=== PATIENT | female | born 1980 | race American Indian/Alaskan Native ===

== ENCOUNTER 2018-02-06 10:57 | Day surgery (SDC) | payer OTHER ==
[2018-02-06] MEDS: NACL 0.9% 1000 ML 1,000 ML IV SCH ×2 (14:00→14:47)
[2018-02-06] MEDS ORDERED: WATER FOR IRRIG STERILE IR ONE (16:39)
[2018-02-06] MEDS ORDERED: DIPRIVAN 10 MG/ML IV ONE ×2 (17:31)
--- NOTE | 2018-02-06 17:44 | Anesthesia Day of Surgery ---
Anesthesia Day of Surgery - Day of Surgery Patient Examined: Yes Patient H&P Reviewed: Yes Patient is NPO: Yes Beta Blockers: No Cardiac Clearance: No Pulmonary Clearance: No
[2018-02-06] MEDS ORDERED: VERSED ONE (17:45)
--- NOTE | 2018-02-06 17:45 | Anesthesia Consultation ---
Anesthesia Consult and Med Hx - Airway Anesthetic Teeth Evaluation: Good Mental/Hyoid Distance: Adequate Mallampati Class: Class II Intubation Access Assessment: Probably Good - Pulmonary Exam CTA: Yes - Cardiac Exam Cardiac Exam: No Murmur - Pre-Operative Health Status ASA Pre-Surgery Classification: ASA2 Proposed Anesthetic Plan: MAC - Pulmonary Hx Smoking: No Hx Asthma: No Hx Respiratory Symptoms: No SOB: No COPD: No Home Oxygen Therapy: No Hx Pneumonia: No Hx Sleep Apnea: No - Cardiovascular System Hx Hypertension: No Hx Coronary Artery Disease: No Hx Heart Attack/AMI: No Hx Angina: No Hx Percutaneous Transluminal Coronary Angioplasty (PTCA): No Hx Cardia Arrhythmia: No Hx Pacemaker: No Hx Internal Defibrillator: No Hx Valvular Heart Disease: No Hx Heart Murmur: No Hx Peripheral Vascular Disease: No - Central Nervous System Hx Neuromuscular Disorder: No Hx Seizures: No CVA: No Hx Back Pain: No Hx Psychiatric Problems: No - Gastrointestinal Hx Ulcer: No Hx Gastroesophageal Reflux Disease: Yes - Endocrine Hx End Stage Renal Disease: No Hx Cirrhosis: No Hx Liver Disease: No Hx Insulin Dependent Diabetes: No Hx Non-Insulin Dependent Diabetes: No Hx Thyroid Disease: No Hx Hypothyroidism: No Hx Hyperthyroidism: No - Hematic Hx Anemia: No Hx Sickle Cell Disease: No - Other Systems Hx Alcohol Use: No Hx Substance Use: No Hx Cancer: No
--- NOTE | 2018-02-06 18:10 | Operative Report ---
Operative Report Operative Report: Date: 02/06/2018 Operative Report: Date of procedure: 02/06/2018 Procedure: Esophagogastroduodenoscopy with multiple mucosal biopsies. Attending physician: Rashel Freeman MD Certification And Selection Specialist: Rashel Freeman MD Indication: Patient is a 37 -year-old female who presented with a history of recurrent epigastric pain, heartburn and indigestion. An upper endoscopy is done to assess patient, so that treatment may be directed based on the findings. Consent: Informed consent was obtained after advising the patient and family regarding nature of this procedure, its indications, potential benefits as well as possible complications including but not limited to bleeding perforation and adverse reaction to medication, infection as well as other cardiopulmonary complications. An informed written and verbal consent was then obtained after due opportunity was provided for questions and answers. Monitoring: Patient was monitored continuously with pulse oximetry and electrocardiographic recordings as well as blood pressure recordings. Vital signs remained stable throughout this procedure with no untoward events. Preoperative assessment: Patient was assessed immediately prior to this procedure for capacity to tolerate monitored anesthesia care and moderate sedation as well as general anesthesia. Patient's ASA classification is 2, Mallampati class is 2, Hyomental distance is 3. Instrument: Exaptiven video endoscope Medications: Propofol given intravenously in divided doses. For details please refer to anesthesia records. Description of procedure: Patient was placed in the left lateral decubitus position after achieving sedation, the endoscope was introduced into the esophagus under direct vision. It was then advanced beyond the esophagus into the stomach and then beyond the stomach into the duodenum and to the second portion of the duodenum. It was subsequently withdrawn with careful inspection of all mucosal surfaces with the following findings. Findings: Patient has an irregular Z line at 38 cm. There was mild erythema in the gastric antrum. The gastric mucosa pattern appeared violaceous and reticulated. The endoscopic appearance suggests underlying gastropathy. Biopsies of the antrum were obtained for histopathology. The duodenum was normal to second portion. Impression:.Irregular Z line. Gastric antral erythema Violaceous reticulated appearing gastric mucosa Plan: Continue treatment with proton pump inhibitors. Follow pathology report. Direct additional treatment based on the pathology report. Patient will be observed clinically. Additional recommendations will be made follow-up.
--- NOTE | 2018-02-06 18:11 | Discharge Summary ---
Short Stay Discharge Plan Activity: advance as tolerated Weight Bearing Status: Weight Bear as Tolerated Diet: regular Follow up with: DAYNE LOVETT MD [Primary Care Provider] - 7 Days
[2018-02-06 18:58] VITALS: BP 108/75
== END 2018-02-06 10:58 | disposition home or self-care (01) ==
LOC: GIO 10:57 → EDSEX 10:57 → GIO 10:58
PROVIDERS: ATTEND Internal Medicine Gastroenterology
DX: K29.50 Unspecified chronic gastritis without bleeding (principal); B96.81 Helicobacter pylori [H. pylori] as the cause of diseases classified elsewhere; K21.9 Gastro-esophageal reflux disease without esophagitis; K31.89 Other diseases of stomach and duodenum; Z79.899 Other long term (current) drug therapy
CPT/HCPCS: 43239; 81025; 88305; 88342; J2250; J2704; J7030

== ENCOUNTER 2022-03-15 18:28 | Emergency (ER) | payer SELFPAY ==
[2022-03-16] MEDS ORDERED: METOCLOPRAMIDE 10 MG/2 ML INJ IV ONE (02:09)
[2022-03-16] MEDS ORDERED: KETOROLAC 30 MG/1 ML INJ IV ONE (02:09)
[2022-03-16] MEDS ORDERED: FAMOTIDINE 20 MG/2 ML INJ IV ONE (02:09)
[2022-03-16] MEDS ORDERED: SODIUM CHLORIDE 0.9% 1000 ML 1,000 ML IV ONE (02:09)
[2022-03-16] MEDS ORDERED: diphenhydrAMINE 50 MG/ML VIAL IV ONE (02:09)
--- NOTE | 2022-03-16 02:58 | XRay Report ---
XR chest 1V ap INDICATION / CLINICAL INFORMATION: Cough. COMPARISON: None available. FINDINGS: SUPPORT DEVICES: None. HEART /PULMONARY VASCULATURE: No significant abnormality. LUNGS / PLEURA: No focal airspace consolidation. Calcified granuloma in the left lung base. No pleura l effusion. No pneumothorax. ADDITIONAL FINDINGS: No significant additional findings. IMPRESSION: 1. No acute findings. Signer Name: Baljinder Verma MD Signed: 03/16/2022 2:54 AM Workstation Name: [id number]
[2022-03-16 03:13] LABS: Hematocrit 28.6 % (30.3-42.9); Mean Corpuscular HGB Conc 31 % (30-34); Mean Corpuscular Volume 72 fl (79-97); Platelet Count 316 K/mm3 (140-440); Red Blood Count 3.99 M/mm3 (3.65-5.03); Red Cell Distribution Width 18.4 % (13.2-15.2)
[2022-03-16 03:26] LABS: Alanine Aminotransferase 21 units/L (7-56); Albumin 4.1 g/dL (3.9-5); Blood Urea Nitrogen 8 mg/dL (7-17); Calcium 8.4 mg/dL (8.4-10.2); Hemolysis Index 3
[2022-03-16 03:28] LABS: BUN/Creatinine Ratio 13
[2022-03-16 03:42] LABS: Anisocytosis 1+; Basophils % (Manual) 0 % (0.0-1.8); Ovalocytes Few; Poikilocytosis 1+; Tear Drop Cells Few; Total Cells Counted 100
[2022-03-16 03:43] LABS: Platelet Estimate Consistent w Auto
[2022-03-16 03:55] LABS: Mucus,Urine FEW /HPF
[2022-03-16 04:01] LABS: Bilirubin,Urine Negative (Negative); Blood,Urine Negative (Negative); Color,Urine Straw (Yellow); PH,Urine 6.5 (5.0-7.0); Urobilinogen,Urine < 2.0 mg/dL (<2.0)
--- NOTE | 2022-03-16 05:42 | Emergency Department Report ---
ED General Adult HPI - General Chief complaint: Headache Stated complaint: HEAD AND BODY PAIN Source: patient Mode of arrival: Ambulatory Limitations: No Limitations - History of Present Illness Initial comments: Patient is a 41-year-old -[place] female with a history of GERD and anxiety presents to the ED with complaint of acute onset persistent epigastric pain, nausea, persistent dry cough and shortness of breath, headache, generalized weakness, subjective fever and chills for the last 5 days, worse in the last 2 days. Patient states that in the last 12 hours she has not been able to sleep because of worsening headache, epigastric pain and shortness of breath. Patient denies dizziness, syncope, chest pain, vomiting, diarrhea, dysuria, urinary frequency and urgency, sore throat, neck pain, change in vision, lightheadedness, vaginal bleeding or vaginal discharge. MD Complaint: headache, epigastric pain, dry cough, dyspnea; body aches and pain, nausea -: Sudden, days(s) (5) Location: head, chest Radiation: non-radiation Severity scale (0 -10): 10 Quality: aching, sharp Consistency: constant Improves with: none Worsens with: none Associated Symptoms: denies other symptoms, cough, fever/chills, headaches, loss of appetite, malaise, shortness of breath, weakness. denies: confusion, chest pain, diaphoresis, nausea/vomiting, rash, seizure, syncope Treatments Prior to Arrival: none - Related Data Previous Rx's Medication Instructions Recorded Last Taken Type Ascorbic Acid [Vitamin C] 1,000 mg PO BID #40 tab 03/16/22 Unknown Rx Azithromycin [Zithromax Z-YVES] 250 mg PO DAILY #6 tab 03/16/22 Unknown Rx Benzonatate [Tessalon Perles] 100 mg PO Q8HR #30 cap 03/16/22 Unknown Rx Butalb/Acetamin/Caff 50-325-40 1 - 2 tab PO Q6HR PRN #15 tab 03/16/22 Unknown Rx [Fioricet 50-325-40] Cetirizine HCl [Zyrtec 10mg tab] 10 mg PO DAILY #30 tab 03/16/22 Unknown Rx Famotidine [Pepcid] 20 mg PO BID #60 tablet 03/16/22 Unknown Rx Ibuprofen [Motrin] 800 mg PO Q8HR PRN #30 tablet 03/16/22 Unknown Rx Omeprazole 40 mg PO DAILY #60 cap 03/16/22 Unknown Rx Ondansetron [Zofran Odt] 4 mg PO Q8HR PRN #20 tab.rapdis 03/16/22 Unknown Rx Allergies Allergy/AdvReac Type Severity Reaction Status Date / Time No Known Allergies Allergy Verified 03/15/22 18:53 ED Review of Systems ROS: Stated complaint: HEAD AND BODY PAIN Other details as noted in HPI Constitutional: chills, malaise, weakness. denies: fever Eyes: denies: eye pain, eye discharge, vision change ENT: congestion. denies: ear pain, throat pain Respiratory: cough, shortness of breath. denies: wheezing Cardiovascular: denies: chest pain, palpitations Endocrine: no symptoms reported Gastrointestinal: abdominal pain (epigastric), nausea. denies: vomiting, diarrhea Genitourinary: denies: urgency, dysuria, discharge, abnormal menses, dyspareunia Musculoskeletal: arthralgia, myalgia. denies: back pain, joint swelling Skin: denies: rash, lesions Neurological: headache. denies: weakness, paresthesias Psychiatric: anxiety. denies: depression Hematological/Lymphatic: denies: easy bleeding, easy bruising ED Past Medical Hx - Past Medical History Hx Hypertension: No Hx Heart Attack/AMI: No Hx GERD: Yes Hx Liver Disease: No Hx Sickle Cell Disease: No Hx Seizures: No Hx Asthma: No Hx COPD: No - Surgical History Hx Pacemaker: No Hx Internal Defibrillator: No - Medications Home Medications: Home Medications Medication Instructions Recorded Confirmed Last Taken Type Ascorbic Acid [Vitamin C] 1,000 mg PO BID #40 tab 03/16/22 Unknown Rx Azithromycin [Zithromax Z-YVES] 250 mg PO DAILY #6 tab 03/16/22 Unknown Rx Benzonatate [Tessalon Perles] 100 mg PO Q8HR #30 cap 03/16/22 Unknown Rx Butalb/Acetamin/Caff 50-325-40 1 - 2 tab PO Q6HR PRN #15 tab 03/16/22 Unknown Rx [Fioricet 50-325-40] Cetirizine HCl [Zyrtec 10mg tab] 10 mg PO DAILY #30 tab 03/16/22 Unknown Rx Famotidine [Pepcid] 20 mg PO BID #60 tablet 03/16/22 Unknown Rx Ibuprofen [Motrin] 800 mg PO Q8HR PRN #30 tablet 03/16/22 Unknown Rx Omeprazole 40 mg PO DAILY #60 cap 03/16/22 Unknown Rx Ondansetron [Zofran Odt] 4 mg PO Q8HR PRN #20 tab.rapdis 03/16/22 Unknown Rx ED Physical Exam - General Limitations: No Limitations General appearance: alert, in no apparent distress - Head Head exam: Present: atraumatic, normocephalic, normal inspection - Eye Eye exam: Present: normal appearance, PERRL, EOMI Pupils: Present: normal accommodation - ENT ENT exam: Present: normal orophraynx, mucous membranes moist, TM's normal bilaterally, normal external ear exam, other (Palpable frontal sinus tenderness; grossly congested nasal passages) - Neck Neck exam: Present: normal inspection, full ROM. Absent: tenderness - Respiratory Respiratory exam: Present: normal lung sounds bilaterally. Absent: respiratory distress, wheezes, rales, rhonchi, stridor, chest wall tenderness, accessory muscle use - Cardiovascular Cardiovascular Exam: Present: normal rhythm, tachycardia, normal heart sounds. Absent: systolic murmur, diastolic murmur, rubs, gallop - GI/Abdominal GI/Abdominal exam: Present: soft, normal bowel sounds. Absent: tenderness, guarding, rebound, hyperactive bowel sounds, hypoactive bowel sounds, organom egaly, mass - Extremities Exam Extremities exam: Present: normal inspection, full ROM, normal capillary refill - Back Exam Back exam: Present: normal inspection, full ROM. Absent: tenderness, CVA tenderness (R), CVA tenderness (L), muscle spasm, paraspinal tenderness, vertebral tenderness - Neurological Exam Neurological exam: Present: alert, oriented X3, CN II-XII intact, normal gait, reflexes normal - Psychiatric Psychiatric exam: Present: normal affect, normal mood, anxious - Skin Skin exam: Present: warm, dry, intact, normal color. Absent: rash ED Course Vital Signs 03/15/22 03/16/22 18:43 03:50 Temperature 99.2 F Pulse Rate 101 H Respiratory 20 16 Rate Blood Pressure 148/92 [Left] O2 Sat by Pulse 100 Oximetry ED Medical Decision Making - Lab Data Result diagrams: 03/16/22 02:41 03/16/22 02:41 - Radiology Data Radiology results: report reviewed, image reviewed [facility] [address] [place] [address] XRay Report Signed Patient: ABBY MARKS MR#: [id number] : 1980 Acct:[id number] Age/Sex: 41 / F ADM Date: 03/15/22 Loc: ED Attending Dr: Ordering Physician: JOSE IVY Date of Service: 03/16/22 Procedure(s): XR chest 1V ap Accession Number(s): [id number] cc: JOSE IVY Fluoro Time In Minutes: XR chest 1V ap INDICATION / CLINICAL INFORMATION: Cough. COMPARISON: None available. FINDINGS: SUPPORT DEVICES: None. HEART /PULMONARY VASCULATURE: No significant abnormality. LUNGS / PLEURA: No focal airspace consolidation. Calcified granuloma in the left lung base. No pleural effusion. No pneumothorax. ADDITIONAL FINDINGS: No significant additional findings. IMPRESSION: 1. No acute findings. Signer Name: Irma Stauffer MD Signed: 03/16/2022 2:54 AM Workstation Name: [id number] Transcribed By: EDNA Dictated By: IMRA STAUFFER MD Electronically Authenticated By: IRMA STAUFFER MD Signed Date/Time: 03/16/22253 DD/ 2 TD/TT: - Medical Decision Making This is a 41-year-old -[place] female with a history of GERD and anxiety presents to the ED with complaint of acute onset persistent epigastric pain, nausea, persistent dry cough and shortness of breath, headache, generalized weakness, subjective fever and chills for the last 5 days, worse in the last 2 days. Patient states that in the last 12 hours she has not been able to sleep because of worsening headache, epigastric pain and shortness of breath. In the ED, patient is alert and oriented x3 and is not in any distress. Patient is anxious and tachycardic in triage but afebrile. Patient was treated for pain in the ED and also given antacids and antiemetics. Chest x-ray showed no acute cardiopulmonary abnormalities or pneumonitis. Lab test results were reviewed and are all nonactionable except for leukopenia of 3.8 and unremarkable urinalysis. On reevaluation, patient felt better, all headache resolved as well as nausea and vomiting. Patient was therefore discharged home on medications and advised to ensure that she gets tested for COVID-19 viral infection in any of the outpatient facilities and if positive to self quarantine at home for 5 days while taking medications. Patient was advised to return to the ED immediately if symptoms get worse, otherwise follow-up with her primary care physician in 7 to 10 days for reevaluation. - Differential Diagnosis COVID-19; URI; sinusitis; pneumonia; GERD; bronchitis; UTI Critical care attestation.: If time is entered above; I have spent that time in minutes in the direct care of this critically ill patient, excluding procedure time. ED Disposition Clinical Impression: Acute upper respiratory infection Acute bronchitis Qualifiers: Bronchitis organism: other organism Qualified Code(s): J20.8 - Acute bronchitis due to other specified organisms Acute frontal sinusitis Qualifiers: Recurrence: not specified as recurrent Qualified Code(s): J01.10 - Acute frontal sinusitis, unspecified GERD (gastroesophageal reflux disease) Qualifiers: Esophagitis presence: esophagitis presence not specified Qualified Code(s): K21.9 - Gastro-esophageal reflux disease without esophagitis Disposition: 01 HOME / SELF CARE / HOMELESS Is pt being admited?: No Does the pt Need Aspirin: No Condition: Stable Instructions: Acute Bronchitis (ED), Sinusitis, Adult, [id number], Upper Respiratory Infection, Adult, [id number], Heartburn, [id number], Cough, Adult, [id number], Acute Bronchitis, Adult, Cyeh-al-Kmhn, Gastroesophageal Reflux Disease, Adult, [id number] Additional Instructions: The chest x-ray showed no acute cardiopulmonary abnormalities or pneumonitis. All lab tests results were reviewed and are all nonactionable. Therefore take medication with food, drink plenty of fluids, follow-up with your primary care physician in 5 to 7 days for reevaluation. Ensure that you get tested for COVID-19 viral infection in any of the outpatient facilities nearby and if positive ensure that you self quarantine at home for 5 days. Return to the ED immediately if symptoms get worse. Prescriptions: Butalb/Acetamin/Caff 50-325-40 [Fioricet 50-325-40] 1 - 2 tab PO Q6HR PRN #15 tab PRN Reason: Headache Ibuprofen [Motrin] 800 mg PO Q8HR PRN #30 tablet PRN Reason: Pain , Severe (7-10) Omeprazole 40 mg PO DAILY #60 cap Famotidine [Pepcid] 20 mg PO BID #60 tablet Benzonatate [Tessalon Perles] 100 mg PO Q8HR #30 cap Ascorbic Acid [Vitamin C] 1,000 mg PO BID #40 tab Azithromycin [Zithromax Z-YVES] 250 mg PO DAILY #6 tab Ondansetron [Zofran Odt] 4 mg PO Q8HR PRN #20 tab.rapdis PRN Reason: Nausea Cetirizine HCl [Zyrtec 10mg tab] 10 mg PO DAILY #30 tab Referrals: [facility] [Provider Group] - 7-10 days Forms: Work/School Release Form(ED) Time of Disposition: 05:49 Print Language: NAURUAN
[2022-03-16 07:21] VITALS: BP 115/80
== END 2022-03-16 07:20 | disposition home or self-care (01) ==
LOC: ED 18:28
DX: J06.9 Acute upper respiratory infection, unspecified (principal); J20.9 Acute bronchitis, unspecified; J01.10 Acute frontal sinusitis, unspecified; K21.9 Gastro-esophageal reflux disease without esophagitis
CPT/HCPCS: 36415; 71045; 80053; 81001; 84484; 84703; 85007; 85025; 96361; 96374; 96375; 99284; J1200; J1885; J2765; J3490; J7030